=== PATIENT | female | born 1990 | race American Indian/Alaskan Native ===

== ENCOUNTER 2017-02-25 20:18 | Emergency (ER) | payer MEDICAID ==
[~2017-02-25] VITALS: Ht 162.6 cm; Wt 96.3 kg
[~2017-02-25 20:18] MED LIST: ALPR0.25 PO; CIPR500T3 PO; HYDR2TAB13 PO; IBUP200T5; LAMO25TA5 PO; OXYC-302; ZOLP-413 PO
[2017-02-25 20:23] VITALS: BP 146/79
[2017-02-25 21:14] LABS: HEMOGLOBIN 12.6 g/dL (11.7-16.4)
[2017-02-25 21:24] LABS: BLOOD UREA NITROGEN 9 mg/dL (7-18)
[2017-02-25 21:25] LABS: ASPARTATE AMINO TRANSFERASE 27 U/L (15-37)
== END 2017-02-26 00:25 | disposition home or self-care (01) ==
LOC: ED 23:46
DX: R10.13 Epigastric pain (principal); F32.9 Major depressive disorder, single episode, unspecified; F43.10 Post-traumatic stress disorder, unspecified; Z98.51 Tubal ligation status; Z90.49 Acquired absence of other specified parts of digestive tract; Z87.440 Personal history of urinary (tract) infections
CPT/HCPCS: 36415; 74020; 74176; 80053; 81001; 83690; 84703; 85025; 87086

== ENCOUNTER 2017-03-26 22:09 | Emergency (ER) | payer SELFPAY ==
[~2017-03-26] VITALS: Ht 162.6 cm; Wt 97.0 kg
[~2017-03-26 22:09] MED LIST changes: +DULO30CA2 PO; +OXYC-302 PO
[2017-03-26] MEDS ORDERED: HYDROcodone/APAP 5/325 TABLET ONE (23:18)
[2017-03-26] MEDS ORDERED: DIAZEPAM 5 MG TABLET ONE (23:18)
[2017-03-26] MEDS ORDERED: BACITRACIN ZINC OINT 500U/GM, 0.9 GM ONE (23:19)
[2017-03-26] MEDS ORDERED: ONDANSETRON ODT 4 MG ONE (23:19)
[2017-03-26] MEDS ORDERED: ONDANSETRON 4 MG TABLET PO ONE (23:30)
[2017-03-26] MEDS ORDERED: DIAZEPAM 5 MG TABLET PO ONE (23:30)
[2017-03-26 23:39] VITALS: BP 115/71
== END 2017-03-26 23:42 | disposition home or self-care (01) ==
LOC: ED 23:20
DX: S16.1XXA Strain of muscle, fascia and tendon at neck level, initial encounter (principal); S33.5XXA Sprain of ligaments of lumbar spine, initial encounter; G43.909 Migraine, unspecified, not intractable, without status migrainosus; Z90.49 Acquired absence of other specified parts of digestive tract; Z87.891 Personal history of nicotine dependence; V49.59XA Passenger injured in collision with other motor vehicles in traffic accident, initial encounter; Y93.89 Activity, other specified; Y92.89 Other specified places as the place of occurrence of the external cause; Y99.8 Other external cause status
CPT/HCPCS: 99284; Q0162

== ENCOUNTER 2017-05-14 19:48 | Emergency (ER) | payer MEDICAID ==
[~2017-05-14] VITALS: Ht 162.6 cm; Wt 98.5 kg
[2017-05-14] MEDS ORDERED: PHENAZOPYRIDINE 200 MG TABLET PO ONE (20:30)
[2017-05-14] MEDS ORDERED: SODIUM CHLORIDE FLUSH 10ML SYR IVF ONE (20:30)
[2017-05-14] MEDS ORDERED: SODIUM CHLORIDE 0.9% 1,000ML IVBOLUS ONE (20:30)
[2017-05-14 21:01] LABS: PATH.CAST-FLAG NOT PRESENT; SPERM-FLAG NOT PRESENT; SRC-FLAG NOT PRESENT; XTAL-FLAG NOT PRESENT; YLC-FLAG NOT PRESENT
[2017-05-14] MEDS ORDERED: PHENAZOPYRIDINE 200 MG TABLET ONE (21:04)
[2017-05-14 21:21] LABS: ASPARTATE AMINO TRANSFERASE 18 U/L (15-37); BLOOD UREA NITROGEN 13 mg/dL (7-18)
[2017-05-14] MEDS ORDERED: AZITHROMYCIN 500 MG TABLET PO ONE (21:30)
[2017-05-14] MEDS ORDERED: CEFTRIAXONE 250 MG IM ONE (21:30)
[2017-05-14] MEDS ORDERED: ACETAMINOPHEN 325 MG TABLET ONE (21:34)
[2017-05-14] MEDS ORDERED: AZITHROMYCIN 500 MG TABLET ONE (21:34)
[2017-05-14] MEDS ORDERED: CEFTRIAXONE 250 MG ONE (21:35)
[2017-05-14] MEDS ORDERED: ACETAMINOPHEN 325 MG TABLET PO ONE (22:00)
[2017-05-14 22:04] VITALS: BP 114/71
== END 2017-05-14 22:53 | disposition home or self-care (01) ==
LOC: ED 21:03
DX: G89.29 Other chronic pain (principal); M54.5 Low back pain; R30.0 Dysuria
CPT/HCPCS: 36415; 80053; 81001; 84703; 85025; 87086; 87491; 87591; 96360; 96372; 99284; J0696; J7030

== ENCOUNTER 2017-06-20 21:10 | Emergency (ER) | payer MEDICAID ==
[~2017-06-20] VITALS: Ht 162.6 cm; Wt 98.0 kg
[~2017-06-20 21:10] MED LIST changes: -HYDR2TAB13 PO; +HYDR2TAB29 PO
[2017-06-20] MEDS ORDERED: METOCLOPRAMIDE 5 MG/ML, 2ML IVPush ONE (22:00)
[2017-06-20] MEDS ORDERED: SODIUM CHLORIDE 0.9% 1,000ML IVBOLUS ONE (22:00)
[2017-06-20] MEDS ORDERED: ONDANSETRON 2MG/ML, 2ML IVPush ONE (22:00)
[2017-06-20] MEDS ORDERED: DIPHENHYDRAMINE 50 MG/ML, 1ML IVPush ONE (22:00)
[2017-06-20] MEDS ORDERED: DIAZEPAM 5 MG/ML, 2ML IVPush ONE (22:00)
[2017-06-20] MEDS ORDERED: SODIUM CHLORIDE FLUSH 10ML SYR IVF ONE (22:00)
[2017-06-20] MEDS ORDERED: DIPHENHYDRAMINE 50 MG/ML, 1ML ONE (22:04)
[2017-06-20] MEDS ORDERED: DIAZEPAM 5 MG/ML, 2ML ONE (22:11)
[2017-06-20] MEDS ORDERED: METOCLOPRAMIDE 5 MG/ML, 2ML ONE (22:14)
[2017-06-20 23:28] VITALS: BP 100/67
== END 2017-06-21 00:08 | disposition home or self-care (01) ==
LOC: ED 22:07
DX: S39.012A Strain of muscle, fascia and tendon of lower back, initial encounter (principal); G43.009 Migraine without aura, not intractable, without status migrainosus; G89.29 Other chronic pain; M54.9 Dorsalgia, unspecified; I88.9 Nonspecific lymphadenitis, unspecified; M79.7 Fibromyalgia; F43.10 Post-traumatic stress disorder, unspecified; X50.1XXA Overexertion from prolonged static or awkward postures, initial encounter; Y93.89 Activity, other specified; Y99.8 Other external cause status; Y92.89 Other specified places as the place of occurrence of the external cause
CPT/HCPCS: 96361; 96374; 96375; 99284; J1200; J2765; J3360; J7030

== ENCOUNTER 2017-06-28 19:27 | Emergency (ER) | payer MEDICAID ==
[~2017-06-28] VITALS: Ht 162.6 cm; Wt 95.2 kg
[2017-06-28] MEDS ORDERED: DIAZEPAM 5 MG TABLET PO ONE (20:30)
[2017-06-28] MEDS ORDERED: IBUPROFEN 200 MG TABLET PO ONE (20:30)
[2017-06-28] MEDS ORDERED: DIAZEPAM 5 MG TABLET ONE (20:34)
[2017-06-28] MEDS ORDERED: IBUPROFEN 200 MG TABLET ONE ×2 (20:34→20:35)
[2017-06-28 21:15] VITALS: BP 101/64
== END 2017-06-28 21:59 | disposition home or self-care (01) ==
LOC: ED 21:53
DX: S39.012A Strain of muscle, fascia and tendon of lower back, initial encounter (principal); Z90.49 Acquired absence of other specified parts of digestive tract; F17.200 Nicotine dependence, unspecified, uncomplicated; Z88.5 Allergy status to narcotic agent; Z88.6 Allergy status to analgesic agent; Z88.1 Allergy status to other antibiotic agents; Z88.8 Allergy status to other drugs, medicaments and biological substances; X50.0XXA Overexertion from strenuous movement or load, initial encounter; Y93.89 Activity, other specified; Y92.89 Other specified places as the place of occurrence of the external cause; Y99.8 Other external cause status
CPT/HCPCS: 99284

== ENCOUNTER 2017-07-19 09:42 | Emergency (ER) | payer MEDICAID ==
[~2017-07-19] VITALS: Ht 162.6 cm; Wt 94.9 kg
[2017-07-19] MEDS ORDERED: HYDROmorphone 1 MG/ML, 1ML ONE (10:24)
[2017-07-19] MEDS ORDERED: ONDANSETRON 2MG/ML, 2ML ONE (10:24)
[2017-07-19] MEDS ORDERED: ONDANSETRON 2MG/ML, 2ML IVPush ONE (10:30)
[2017-07-19] MEDS ORDERED: HYDROmorphone 1 MG/ML, 1ML IVPush PRN (10:30)
[2017-07-19] MEDS ORDERED: SODIUM CHLORIDE FLUSH 10ML SYR IVF ONE (10:30)
[2017-07-19 10:35] LABS: HEMATOCRIT 33.5 % (34.6-47.8); HEMOGLOBIN 10.8 g/dL (11.7-16.4); WHITE BLOOD COUNT 8.4 x10^3/uL (3.4-10)
[2017-07-19 10:41] LABS: ASPARTATE AMINO TRANSFERASE 9 U/L (15-37); BLOOD UREA NITROGEN 9 mg/dL (7-18)
[2017-07-19] MEDS ORDERED: SODIUM CHLORIDE 0.9% 1,000ML IVBOLUS ONE (12:30)
[2017-07-19 13:30] VITALS: BP 97/51
== END 2017-07-19 13:32 | disposition home or self-care (01) ==
LOC: ED 10:15
DX: D25.0 Submucous leiomyoma of uterus (principal); N83.02 Follicular cyst of left ovary; F17.210 Nicotine dependence, cigarettes, uncomplicated; G43.909 Migraine, unspecified, not intractable, without status migrainosus
CPT/HCPCS: 36415; 76830; 80053; 81003; 84703; 85025; 96361; 96374; 96375; 99285; J1170; J2405; J7030

== ENCOUNTER 2017-07-20 23:50 | Emergency (ER) | payer MEDICAID ==
[~2017-07-20] VITALS: Ht 167.6 cm; Wt 97.5 kg
[~2017-07-20 23:50] MED LIST changes: +IBUP-1484; -IBUP200T5
[2017-07-21] MEDS ORDERED: SODIUM CHLORIDE FLUSH 10ML SYR IVF ONE (01:00)
[2017-07-21] MEDS ORDERED: ONDANSETRON 2MG/ML, 2ML IVPush ONE (01:00)
[2017-07-21] MEDS ORDERED: HYDROmorphone 1 MG/ML, 1ML IVPush PRN (01:00)
[2017-07-21] MEDS ORDERED: HYDROmorphone 1 MG/ML, 1ML ONE (01:29)
[2017-07-21] MEDS ORDERED: ONDANSETRON 2MG/ML, 2ML ONE (01:29)
[2017-07-21 01:31] VITALS: BP 101/59
[2017-07-21 01:49] LABS: HEMATOCRIT 31.7 % (34.6-47.8); HEMOGLOBIN 10.2 g/dL (11.7-16.4); WHITE BLOOD COUNT 6.6 x10^3/uL (3.4-10)
[2017-07-21 01:50] LABS: BLOOD UREA NITROGEN 7 mg/dL (7-18)
[2017-07-21 01:54] LABS: ASPARTATE AMINO TRANSFERASE 17 U/L (15-37)
== END 2017-07-21 02:26 | disposition home or self-care (01) ==
LOC: ED 23:59
DX: D25.9 Leiomyoma of uterus, unspecified (principal); R11.2 Nausea with vomiting, unspecified; Z90.49 Acquired absence of other specified parts of digestive tract
CPT/HCPCS: 36415; 80053; 81003; 85025; 96374; 96375; 99284; J1170; J2405

== ENCOUNTER 2017-10-19 06:23 | Emergency (ER) | payer MEDICAID ==
[~2017-10-19] VITALS: Ht 162.6 cm; Wt 101.3 kg
[2017-10-19 06:25] VITALS: BP 141/86
[2017-10-19 07:11] LABS: HEMATOCRIT 36.4 % (34.6-47.8); WHITE BLOOD COUNT 5.4 x10^3/uL (3.4-10)
[2017-10-19 07:24] LABS: ASPARTATE AMINO TRANSFERASE 16 U/L (15-37); BLOOD UREA NITROGEN 9 mg/dL (7-18)
[2017-10-19 07:37] LABS: IS PT STATUS REG ER OR PRE ER? YES
[2017-10-19] MEDS ORDERED: OMNIPAQUE 350 MG/ML, 150 ML BOTTLE ONE (08:36)
== END 2017-10-19 09:10 | disposition home or self-care (01) ==
LOC: ED 09:04
DX: J20.9 Acute bronchitis, unspecified (principal); G43.909 Migraine, unspecified, not intractable, without status migrainosus; F43.10 Post-traumatic stress disorder, unspecified; Z90.49 Acquired absence of other specified parts of digestive tract
CPT/HCPCS: 36415; 71020; 71275; 80053; 84484; 85025; 85379; 93005; 99285; Q9967

== ENCOUNTER 2017-10-20 14:45 | Emergency (ER) | payer MEDICAID ==
[2017-10-20] MEDS ORDERED: SODIUM CHLORIDE 0.9% 1,000 ML IV ONE (15:18)
[2017-10-20] MEDS ORDERED: LORazepam 2 MG/ML, 1ML IVP ONE (15:30)
[2017-10-20] MEDS ORDERED: SODIUM CHLORIDE FLUSH 10ML SYR IVF ONE (15:30)
[2017-10-20] MEDS ORDERED: SODIUM CHLORIDE 0.9% 1,000ML IVBOLUS ONE (15:30)
[2017-10-20] MEDS ORDERED: ONDANSETRON 2MG/ML, 2ML IVPush ONE (15:30)
[2017-10-20 15:51] LABS: RAPID INFLUENZA A Negative (Negative); RAPID INFLUENZA B Negative (Negative)
[2017-10-20] MEDS ORDERED: PLEASE ENTER PATIENTS WEIGHT MC SCH (16:00)
[2017-10-20 16:03] LABS: HEMOGLOBIN 12.3 g/dL (11.7-16.4); WHITE BLOOD COUNT 7.4 x10^3/uL (3.4-10)
[2017-10-20 16:08] LABS: BLOOD UREA NITROGEN 14 mg/dL (7-18)
[2017-10-20] MEDS ORDERED: HYDROmorphone 1 MG/ML, 1ML IVPush PRN (16:30)
[2017-10-20] MEDS ORDERED: HYDROmorphone 1 MG/ML, 1ML ONE (16:48)
[2017-10-20] MEDS ORDERED: ONDANSETRON 2MG/ML, 2ML ONE (16:49)
[2017-10-20 18:20] VITALS: BP 124/62
[2017-10-20] MEDS ORDERED: ONDANSETRON ODT 8 MG ONE (18:38)
== END 2017-10-20 18:33 | disposition home or self-care (01) ==
LOC: ED 16:11
DX: B96.89 Other specified bacterial agents as the cause of diseases classified elsewhere (principal); J20.8 Acute bronchitis due to other specified organisms; F43.10 Post-traumatic stress disorder, unspecified
CPT/HCPCS: 36415; 71020; 80048; 82040; 85025; 87400; 93005; 96361; 96374; 96375; 99285; J1170; J2405; J7030

== ENCOUNTER 2017-11-25 22:24 | Emergency (ER) | payer MEDICAID ==
[~2017-11-25] VITALS: Ht 165.1 cm; Wt 102.9 kg
[2017-11-25 22:32] VITALS: BP 110/76
[2017-11-26] MEDS ORDERED: HYDROcodone/APAP 5/325 TABLET ONE (00:06)
[2017-11-26] MEDS ORDERED: HYDROcodone/APAP 5/325 TABLET PO ONE (00:30)
== END 2017-11-26 00:03 | disposition home or self-care (01) ==
LOC: ED 23:05
DX: K08.89 Other specified disorders of teeth and supporting structures (principal); G43.909 Migraine, unspecified, not intractable, without status migrainosus; M79.7 Fibromyalgia; Z90.49 Acquired absence of other specified parts of digestive tract; Z90.89 Acquired absence of other organs
CPT/HCPCS: 99282

== ENCOUNTER 2017-12-01 23:17 | Emergency (ER) | payer MEDICAID ==
[~2017-12-01] VITALS: Ht 162.6 cm; Wt 100.0 kg
[2017-12-01 23:20] VITALS: BP 120/83
== END 2017-12-02 00:35 | disposition left against medical advice (07) ==
LOC: ED 23:59
DX: M54.5 Low back pain (principal); Z53.21 Procedure and treatment not carried out due to patient leaving prior to being seen by health care provider

== ENCOUNTER 2018-02-18 21:07 | Emergency (ER) | payer MEDICAID ==
[~2018-02-18] VITALS: Ht 162.6 cm; Wt 102.0 kg
[2018-02-18] MEDS ORDERED: ONDANSETRON 2MG/ML, 2ML ONE (21:53)
[2018-02-18] MEDS ORDERED: DICYCLOMINE 20 MG TABLET ONE (21:53)
[2018-02-18] MEDS ORDERED: DICYCLOMINE 20 MG TABLET PO ONE (22:00)
[2018-02-18] MEDS ORDERED: SODIUM CHLORIDE FLUSH 10ML SYR IVF ONE (22:00)
[2018-02-18] MEDS ORDERED: ONDANSETRON 2MG/ML, 2ML IVPush ONE (22:00)
[2018-02-18] MEDS ORDERED: SODIUM CHLORIDE 0.9% 1,000ML IVBOLUS ONE (22:00)
[2018-02-18 22:40] LABS: BASOPHILS # (AUTO) 0.03 x10^3/uL (0-0.1); BASOPHILS % (AUTO) 0 % (0-1); EOSINOPHILS # (AUTO) 0.01 x10^3/uL (0-0.4); EOSINOPHILS % (AUTO) 0 % (1-7); LYMPHOCYTES # (AUTO) 2.91 x10^3/uL (1-3.4); LYMPHOCYTES % (AUTO) 30 % (22-44); MD NO; MEAN CORPUSCULAR HGB CONC 33.7 g/dL (32.4-35.8); MONOCYTES # (AUTO) 0.52 x10^3/uL (0.2-0.8); MONOCYTES % (AUTO) 5 % (2-9); NEUTROPHILS # (AUTO) 6.11 x10^3/uL (1.8-6.8); NEUTROPHILS % (AUTO) 64 % (42-75); PLATELET COUNT 282 x10^3/uL (130-400); RED BLOOD COUNT 4.17 x10^6/uL (3.82-5.3); RED CELL DISTRIBUTION WIDTH 15.4 % (9.6-15.2)
[2018-02-18 22:50] LABS: ALANINE AMINOTRANSFERASE 13 U/L (12-78); ALBUMIN 3.3 g/dL (3.4-5.0); ANION GAP 9 mmol/L (5-15); CALCIUM 8.8 mg/dL (8.5-10.1); CHLORIDE 110 mmol/L (98-107); CREATININE 0.63 mg/dL (0.55-1.02)
[2018-02-18 22:51] LABS: HCG UR SG 1.019 (1.003-1.030); MICROSCOPIC NOT IND
[2018-02-18 22:52] LABS: ALKALINE PHOSPHATASE 65 U/L (45-117); BILIRUBIN,TOTAL 0.3 mg/dL (0.2-1.0); TOTAL PROTEIN 7.2 g/dL (6.4-8.2)
[2018-02-18 22:55] LABS: CULTURE INDICATED? NO
[2018-02-18 23:28] VITALS: BP 124/62
== END 2018-02-18 23:31 | disposition home or self-care (01) ==
LOC: ED 21:53
DX: R10.84 Generalized abdominal pain (principal); R11.2 Nausea with vomiting, unspecified; M79.7 Fibromyalgia; Z90.49 Acquired absence of other specified parts of digestive tract
CPT/HCPCS: 36415; 80053; 81003; 81025; 83690; 85025; 96361; 96374; 99284; J2405; J7030

== ENCOUNTER 2018-06-13 18:49 | Emergency (ER) | payer MEDICAID ==
[~2018-06-13] VITALS: Ht 162.6 cm; Wt 103.4 kg
[2018-06-13] MEDS ORDERED: DICYCLOMINE 20 MG TABLET PO ONE (20:00)
[2018-06-13] MEDS ORDERED: SODIUM CHLORIDE FLUSH 10ML SYR IVF ONE (20:00)
[2018-06-13] MEDS ORDERED: FAMOTIDINE 20 MG/2 ML IVP ONE (20:00)
[2018-06-13] MEDS ORDERED: SODIUM CHLORIDE 0.9% 1,000ML IVBOLUS ONE (20:00)
[2018-06-13] MEDS ORDERED: ONDANSETRON 2MG/ML, 2ML IVPush ONE (20:00)
[2018-06-13 20:08] LABS: BASOPHILS # (AUTO) 0.07 x10^3/uL (0-0.1); BASOPHILS % (AUTO) 1 % (0-1); EOSINOPHILS # (AUTO) 0.07 x10^3/uL (0-0.4); EOSINOPHILS % (AUTO) 1 % (1-7); LYMPHOCYTES # (AUTO) 2.94 x10^3/uL (1-3.4); LYMPHOCYTES % (AUTO) 31 % (22-44); MD NO; MEAN CORPUSCULAR HEMOGLOBIN 29.3 pg (27.0-34.8); MEAN CORPUSCULAR HGB CONC 33.4 g/dL (32.4-35.8); MEAN CORPUSCULAR VOLUME 87.6 fL (80-100); MONOCYTES # (AUTO) 0.59 x10^3/uL (0.2-0.8); MONOCYTES % (AUTO) 6 % (2-9); NEUTROPHILS % (AUTO) 62 % (42-75); PLATELET COUNT 318 x10^3/uL (130-400); RED BLOOD COUNT 4.53 x10^6/uL (3.82-5.3); RED CELL DISTRIBUTION WIDTH 14.9 % (9.6-15.2)
[2018-06-13] MEDS ORDERED: DICYCLOMINE 20 MG TABLET ONE (20:08)
[2018-06-13] MEDS ORDERED: FAMOTIDINE 20 MG/2 ML ONE (20:08)
[2018-06-13] MEDS ORDERED: ONDANSETRON 2MG/ML, 2ML ONE (20:08)
[2018-06-13 20:13] LABS: MICROSCOPIC NOT IND
[2018-06-13 20:15] LABS: CULTURE INDICATED? NO
[2018-06-13 20:16] LABS: ALANINE AMINOTRANSFERASE 36 U/L (12-78); ALBUMIN 3.7 g/dL (3.4-5.0); ANION GAP 9 mmol/L (5-15); CALCIUM 9.3 mg/dL (8.5-10.1); CHLORIDE 111 mmol/L (98-107); CREATININE 0.71 mg/dL (0.55-1.02)
[2018-06-13 20:20] LABS: ALKALINE PHOSPHATASE 73 U/L (45-117); BILIRUBIN,TOTAL 0.2 mg/dL (0.2-1.0); TOTAL PROTEIN 7.7 g/dL (6.4-8.2)
[2018-06-13 21:48] VITALS: BP 100/52
== END 2018-06-13 21:50 | disposition home or self-care (01) ==
LOC: ED 21:44
DX: R10.84 Generalized abdominal pain (principal); R11.0 Nausea; J45.909 Unspecified asthma, uncomplicated
CPT/HCPCS: 36415; 74021; 80053; 81003; 83690; 84703; 85025; 96361; 96374; 96375; 99285; J2405; J7030; S0028

== ENCOUNTER 2018-08-15 12:16 | Emergency (ER) | payer MEDICAID ==
[~2018-08-15] VITALS: Ht 162.6 cm; Wt 101.8 kg
[2018-08-15 12:23] VITALS: BP 121/85
[2018-08-15] MEDS ORDERED: HYDROcodone/APAP 5/325 TABLET ONE (12:52)
[2018-08-15] MEDS ORDERED: HYDROcodone/APAP 5/325 TABLET PO PRN (13:00)
== END 2018-08-15 14:03 | disposition home or self-care (01) ==
LOC: ED 13:31
DX: S46.912A Strain of unspecified muscle, fascia and tendon at shoulder and upper arm level, left arm, initial encounter (principal); S63.642A Sprain of metacarpophalangeal joint of left thumb, initial encounter; F41.1 Generalized anxiety disorder; G89.29 Other chronic pain; Z90.89 Acquired absence of other organs; Z90.49 Acquired absence of other specified parts of digestive tract; Z88.0 Allergy status to penicillin; Z88.6 Allergy status to analgesic agent; Z88.8 Allergy status to other drugs, medicaments and biological substances; V49.49XA Driver injured in collision with other motor vehicles in traffic accident, initial encounter; Y93.89 Activity, other specified; Y92.89 Other specified places as the place of occurrence of the external cause; Y99.8 Other external cause status
CPT/HCPCS: 29125; 99284

== ENCOUNTER 2018-08-18 19:04 | Emergency (ER) | payer MEDICAID ==
[~2018-08-18] VITALS: Ht 162.6 cm; Wt 102.0 kg
[2018-08-18 19:35] VITALS: BP 136/87
[2018-08-18] MEDS ORDERED: OXYcodone/APAP 5/325MG TABLET ONE (20:22)
[2018-08-18] MEDS ORDERED: OXYcodone/APAP 5/325MG TABLET PO ONE (20:30)
== END 2018-08-18 20:28 | disposition home or self-care (01) ==
LOC: ED 20:22
DX: S39.012A Strain of muscle, fascia and tendon of lower back, initial encounter (principal); M54.16 Radiculopathy, lumbar region; G43.909 Migraine, unspecified, not intractable, without status migrainosus; Z88.0 Allergy status to penicillin; Z88.1 Allergy status to other antibiotic agents; V49.49XA Driver injured in collision with other motor vehicles in traffic accident, initial encounter; Y93.89 Activity, other specified; Y92.89 Other specified places as the place of occurrence of the external cause; Y99.8 Other external cause status
CPT/HCPCS: 72110; 99284

== ENCOUNTER 2018-08-24 18:54 | Emergency (ER) | payer MEDICAID ==
[~2018-08-24] VITALS: Ht 162.6 cm; Wt 103.1 kg
[2018-08-24] MEDS ORDERED: OXYcodone/APAP 5/325MG TABLET PO ONE (20:00)
[2018-08-24] MEDS ORDERED: OXYcodone/APAP 5/325MG TABLET ONE (20:04)
[2018-08-24 21:01] VITALS: BP 146/68
== END 2018-08-24 21:06 | disposition home or self-care (01) ==
LOC: ED 21:00
DX: S76.012A Strain of muscle, fascia and tendon of left hip, initial encounter (principal); J45.909 Unspecified asthma, uncomplicated; G43.909 Migraine, unspecified, not intractable, without status migrainosus; V49.9XXA Car occupant (driver) (passenger) injured in unspecified traffic accident, initial encounter; Y93.89 Activity, other specified; Y92.89 Other specified places as the place of occurrence of the external cause; Y99.8 Other external cause status
CPT/HCPCS: 99284

== ENCOUNTER 2018-09-24 01:25 | Emergency (ER) | payer MEDICAID ==
[~2018-09-24] VITALS: Ht 162.6 cm; Wt 103.0 kg
[2018-09-24] MEDS ORDERED: VICODIN (01:32)
[2018-09-24] MEDS ORDERED: DIAZEPAM 5 MG TABLET PO ONE (02:00)
[2018-09-24] MEDS ORDERED: DIAZEPAM 5 MG TABLET ONE (02:12)
[2018-09-24 02:30] VITALS: BP 121/74
== END 2018-09-24 02:32 | disposition home or self-care (01) ==
LOC: ED 02:28
DX: S16.1XXA Strain of muscle, fascia and tendon at neck level, initial encounter (principal); Z88.0 Allergy status to penicillin; Z88.5 Allergy status to narcotic agent; Z88.1 Allergy status to other antibiotic agents; F17.200 Nicotine dependence, unspecified, uncomplicated; X58.XXXA Exposure to other specified factors, initial encounter; Y93.89 Activity, other specified; Y92.89 Other specified places as the place of occurrence of the external cause; Y99.8 Other external cause status; G43.909 Migraine, unspecified, not intractable, without status migrainosus
CPT/HCPCS: 99283

== ENCOUNTER 2018-12-10 21:02 | Emergency (ER) | payer MEDICAID ==
[~2018-12-10] VITALS: Ht 162.6 cm; Wt 99.1 kg
[~2018-12-10 21:02] MED LIST changes: +VICODIN
[2018-12-10 21:04] VITALS: BP 111/78
--- NOTE | 2018-12-10 21:32 | NUR ---
PT ARRIVES TO ED WITH BEING WORRIED THE CAST IS ON TOO TIGHT AT THIS TIME. PT HAS GOOD CAP REFILL AND CMS INTACT. NO SWELLING NOTED.
--- NOTE | 2018-12-10 21:37 | NUR ---
Patient/Caregiver given discharge instructions and they have confirmed that they understand the instructions. Patient ambulatory with steady gait.
== END 2018-12-10 21:41 | disposition home or self-care (01) ==
LOC: ED 21:30
DX: M25.532 Pain in left wrist (principal); M62.838 Other muscle spasm; G89.29 Other chronic pain; J45.909 Unspecified asthma, uncomplicated; G43.909 Migraine, unspecified, not intractable, without status migrainosus
CPT/HCPCS: 99283

== ENCOUNTER 2019-01-07 23:07 | Emergency (ER) | payer MEDICAID ==
[~2019-01-07] VITALS: Ht 162.6 cm; Wt 100.0 kg
[2019-01-07] MEDS ORDERED: OXYC-307 PO (23:24)
[2019-01-07] MEDS ORDERED: ALBU0.63 NEB (23:25)
--- NOTE | 2019-01-07 23:27 | NUR ---
FIRST CONTACT WITH PT. PT C/O COUGH/NASAL CONGESTION X 3 DAYS. PT STATES " I FEEL SUPER SICK X 3 DAYS." PT DENIES N/V/D/CP/FEVER AT THIS TIME. PT'S AOX4. RESPS EVEN AND UNLABORED. BP/SPO2 MONITORS IN PLACE. CALL LIGHT WITHIN REACH. EDMD AT BEDSIDE TO ASSESS AND EXPLAIN POC AT THIS TIME.
--- NOTE | 2019-01-08 00:15 | NUR ---
Patient is resting comfortably in bed. Vital Signs within normal limits. PT'S AOX4. RESPS EVEN AND UNLABORED.
[2019-01-08 00:44] VITALS: BP 123/78
--- NOTE | 2019-01-08 00:53 | NUR ---
PT GIVEN DC INSTRUCTIONS AND SCRIPT. PT EDUCATED REGARDING DC MEDICATION WHICH IS HERIBERTO MARTÍNEZ. PT AMB TO DC WITH STEADY GAIT. PT'S AOX4. RESPS EVEN AND UNLABORED. NO ACUTE DISTRESS AT DC.
== END 2019-01-08 00:46 | disposition home or self-care (01) ==
LOC: ED 23:59
DX: R05 Cough (principal); J45.909 Unspecified asthma, uncomplicated; F32.9 Major depressive disorder, single episode, unspecified; G89.29 Other chronic pain; F43.10 Post-traumatic stress disorder, unspecified; F17.200 Nicotine dependence, unspecified, uncomplicated; Z88.0 Allergy status to penicillin; Z88.6 Allergy status to analgesic agent; Z88.8 Allergy status to other drugs, medicaments and biological substances
CPT/HCPCS: 71046; 99283

== ENCOUNTER 2019-02-16 19:43 | Inpatient (IN) | payer MEDICAID ==
[~2019-02-16] VITALS: Ht 162.6 cm; Wt 99.6 kg
[~2019-02-16 19:43] MED LIST changes: +ALBU0.63 NEB; +OXYC-307 PO
[2019-02-16] MEDS ORDERED: SODIUM CHLORIDE FLUSH 10ML SYR IVF ONE (20:00)
[2019-02-16 20:25] LABS: BASOPHILS # (AUTO) 0.03 x10^3/uL (0-0.1); BASOPHILS % (AUTO) 0 % (0-1); EOSINOPHILS # (AUTO) 0.03 x10^3/uL (0-0.4); EOSINOPHILS % (AUTO) 0 % (1-7); LYMPHOCYTES # (AUTO) 2.94 x10^3/uL (1-3.4); LYMPHOCYTES % (AUTO) 33 % (22-44); MD NO; MEAN CORPUSCULAR HEMOGLOBIN 30.4 pg (27.0-34.8); MEAN CORPUSCULAR VOLUME 89.6 fL (80-100); MEAN PLATELET VOLUME 8.5 fL (7.4-10.4); MONOCYTES # (AUTO) 0.56 x10^3/uL (0.2-0.8); MONOCYTES % (AUTO) 6 % (2-9); NEUTROPHILS # (AUTO) 5.27 x10^3/uL (1.8-6.8); NEUTROPHILS % (AUTO) 60 % (42-75); PLATELET COUNT 250 x10^3/uL (130-400); RED BLOOD COUNT 4.51 x10^6/uL (3.82-5.3)
--- NOTE | 2019-02-16 20:30 | NUR ---
LOWER LEGT ABD PAIN X 4 DAYS. STATED TOOK ABOUT 24, 500MG TYLENOL PILLS IN 24 HOURS. DENIED SI/SA. DENIED URINARY SYMPTOMS. LAST TYLENOL ONE HOUR AGO. VSS, APPEARS WELL BUT REPORTS RUQ PAIN, NAUSEA & FATIGUE. PLACED ON DIE FINISHER FORGING, TO PLACE PIV SHORTLY
[2019-02-16 20:36] LABS: ALANINE AMINOTRANSFERASE 15 U/L (12-78); ALBUMIN 3.9 g/dL (3.4-5.0); ANION GAP 6 mmol/L (5-15); CALCIUM 9.2 mg/dL (8.5-10.1); CHLORIDE 113 mmol/L (98-107); CREATININE 0.76 mg/dL (0.55-1.02); SALICYLATE LEVEL 2.7 mg/dL (2.8-20.0)
[2019-02-16 20:41] LABS: ACETAMINOPHEN 75 mcg/mL (10-30); ALKALINE PHOSPHATASE 56 U/L (45-117); BILIRUBIN,TOTAL 0.3 mg/dL (0.2-1.0); TOTAL PROTEIN 7.4 g/dL (6.4-8.2)
[2019-02-16] MEDS ORDERED: DEXTROSE 5% IV ONE ×3 (21:00→22:00)
[2019-02-16] MEDS ORDERED: ACETYLCYSTEINE IV ONE ×3 (21:00→22:00)
[2019-02-16 22:53] LABS: MICROSCOPIC NOT IND
[2019-02-16] MEDS ORDERED: OXYC-302 PO (22:55)
[2019-02-16 22:58] LABS: AMPHETAMINE SCREEN, URINE Negative (Negative); BARBITURATE SCREEN, URINE Negative (Negative); BENZODIAZEPINE SCREEN, URINE Negative (Negative); CANNABINOID SCREEN, URINE Negative (Negative); COCAINE SCREEN, URINE Negative (Negative); CULTURE INDICATED? NO; METHADONE SCREEN, URINE Negative (Negative); OPIATE SCREEN, URINE Negative (Negative)
[2019-02-17] MEDS ORDERED: HYDROmorphone 2 MG/ML, 1ML IVPush PRN
[2019-02-17] MEDS: ONDANSETRON 2MG/ML, 2ML IVPush PRN ×2 (00:34→08:05)
[2019-02-17 00:43] LABS: INTERNATIONAL NORMALIZED RATIO 1.02 (0.93-1.1); PROTHROMBIN TIME 10.7 Seconds (9.6-11.5)
[2019-02-17] MEDS ORDERED: DEXTROSE 5% IV ONE (01:00)
[2019-02-17] MEDS ORDERED: ACETYLCYSTEINE IV ONE (01:00)
[2019-02-17 02:00] VITALS: BP 99/64
[2019-02-17 07:11] LABS: BASOPHILS # (AUTO) 0.02 x10^3/uL (0-0.1); BASOPHILS % (AUTO) 0 % (0-1); EOSINOPHILS # (AUTO) 0.02 x10^3/uL (0-0.4); EOSINOPHILS % (AUTO) 0 % (1-7); LYMPHOCYTES # (AUTO) 2.55 x10^3/uL (1-3.4); LYMPHOCYTES % (AUTO) 43 % (22-44); MD NO; MEAN CORPUSCULAR HEMOGLOBIN 29.8 pg (27.0-34.8); MEAN CORPUSCULAR HGB CONC 33.3 g/dL (32.4-35.8); MEAN CORPUSCULAR VOLUME 89.7 fL (80-100); MEAN PLATELET VOLUME 8.3 fL (7.4-10.4); MONOCYTES # (AUTO) 0.52 x10^3/uL (0.2-0.8); MONOCYTES % (AUTO) 9 % (2-9); NEUTROPHILS # (AUTO) 2.83 x10^3/uL (1.8-6.8); NEUTROPHILS % (AUTO) 48 % (42-75); PLATELET COUNT 227 x10^3/uL (130-400); RED BLOOD COUNT 4.06 x10^6/uL (3.82-5.3); RED CELL DISTRIBUTION WIDTH 14.2 % (9.6-15.2)
[2019-02-17 07:18] LABS: ANION GAP 8 mmol/L (5-15); CALCIUM 8.6 mg/dL (8.5-10.1); CHLORIDE 113 mmol/L (98-107)
[2019-02-17 07:21] LABS: ALANINE AMINOTRANSFERASE 16 U/L (12-78); ALKALINE PHOSPHATASE 30 U/L (45-117); BILIRUBIN,TOTAL 0.5 mg/dL (0.2-1.0); TOTAL PROTEIN 6.1 g/dL (6.4-8.2)
[2019-02-17 07:30] VITALS: BP 106/71
[2019-02-17] MEDS ORDERED: LIDODERM 5% PATCH TD SCH (11:00)
[2019-02-17 12:46] VITALS: BP 98/61
== END 2019-02-17 17:25 | disposition left against medical advice (07) | DRG 918 ==
LOC: ED 21:01 → EDIP 21:36 → 3NW 22:32
PROVIDERS: ADMIT Family Medicine; ATTEND Family Medicine
DX: T39.1X1A Poisoning by 4-Aminophenol derivatives, accidental (unintentional), initial encounter (principal); E66.9 Obesity, unspecified; F17.200 Nicotine dependence, unspecified, uncomplicated; G89.29 Other chronic pain; Z53.21 Procedure and treatment not carried out due to patient leaving prior to being seen by health care provider; N83.00 Follicular cyst of ovary, unspecified side; Z83.3 Family history of diabetes mellitus; Z68.37 Body mass index [BMI] 37.0-37.9, adult; Z90.49 Acquired absence of other specified parts of digestive tract; Z98.1 Arthrodesis status; Y92.89 Other specified places as the place of occurrence of the external cause; Z88.8 Allergy status to other drugs, medicaments and biological substances; Z88.6 Allergy status to analgesic agent
CPT/HCPCS: 36415; 76856; 80053; 80307; 80329; 81003; 81025; 83690; 83735; 84703; 85025; 85610; 93005; 96365; G0378; J0132; J2405; J7060; J7070; G0480

== ENCOUNTER 2019-02-18 15:25 | Emergency (ER) | payer MEDICAID ==
[~2019-02-18] VITALS: Ht 162.6 cm; Wt 99.3 kg
[2019-02-18 15:43] VITALS: BP 146/97
[2019-02-18 16:16] LABS: MD NO
[2019-02-18 16:21] LABS: BASOPHILS # (AUTO) 0.04 x10^3/uL (0-0.1); BASOPHILS % (AUTO) 0 % (0-1); EOSINOPHILS # (AUTO) 0.03 x10^3/uL (0-0.4); EOSINOPHILS % (AUTO) 0 % (1-7); LYMPHOCYTES # (AUTO) 2.56 x10^3/uL (1-3.4); LYMPHOCYTES % (AUTO) 31 % (22-44); MEAN CORPUSCULAR HEMOGLOBIN 30.6 pg (27.0-34.8); MEAN CORPUSCULAR HGB CONC 34.1 g/dL (32.4-35.8); MEAN CORPUSCULAR VOLUME 89.8 fL (80-100); MEAN PLATELET VOLUME 8.5 fL (7.4-10.4); MONOCYTES # (AUTO) 0.47 x10^3/uL (0.2-0.8); MONOCYTES % (AUTO) 6 % (2-9); NEUTROPHILS # (AUTO) 5.07 x10^3/uL (1.8-6.8); NEUTROPHILS % (AUTO) 62 % (42-75); PLATELET COUNT 243 x10^3/uL (130-400); RED BLOOD COUNT 4.41 x10^6/uL (3.82-5.3); RED CELL DISTRIBUTION WIDTH 14.1 % (9.6-15.2)
[2019-02-18 16:24] LABS: ALBUMIN 4.1 g/dL (3.4-5.0); ANION GAP 6 mmol/L (5-15); CALCIUM 9.3 mg/dL (8.5-10.1); CHLORIDE 109 mmol/L (98-107)
[2019-02-18 16:28] LABS: ALANINE AMINOTRANSFERASE 20 U/L (12-78); ALKALINE PHOSPHATASE 62 U/L (45-117); BILIRUBIN,TOTAL 0.2 mg/dL (0.2-1.0); CREATININE 0.78 mg/dL (0.55-1.02)
[2019-02-18 16:29] LABS: ACETAMINOPHEN < 2 mcg/mL (10-30)
--- NOTE | 2019-02-18 16:58 | NUR ---
Pt from lobby to 4
== END 2019-02-18 18:57 | disposition home or self-care (01) ==
LOC: ED 17:08
DX: R10.11 Right upper quadrant pain (principal); R11.2 Nausea with vomiting, unspecified; J45.909 Unspecified asthma, uncomplicated; F32.9 Major depressive disorder, single episode, unspecified; F41.1 Generalized anxiety disorder; G89.29 Other chronic pain; F17.200 Nicotine dependence, unspecified, uncomplicated; Z90.89 Acquired absence of other organs; Z90.49 Acquired absence of other specified parts of digestive tract
CPT/HCPCS: 36415; 80053; 80307; 83690; 85025; 99283

== ENCOUNTER 2019-04-16 16:43 | Emergency (ER) | payer MEDICAID ==
[~2019-04-16] VITALS: Ht 162.6 cm; Wt 96.0 kg
[2019-04-16 16:48] VITALS: BP 119/76
[2019-04-16] MEDS ORDERED: IBUPROFEN 800 MG TABLET PO ONE (17:30)
[2019-04-16] MEDS ORDERED: IBUPROFEN 200 MG TABLET ONE (17:32)
== END 2019-04-16 17:38 | disposition home or self-care (01) ==
LOC: ED 17:32
DX: S63.502A Unspecified sprain of left wrist, initial encounter (principal); X58.XXXA Exposure to other specified factors, initial encounter; Y93.89 Activity, other specified; Y92.89 Other specified places as the place of occurrence of the external cause; Y99.8 Other external cause status
CPT/HCPCS: 29260; 99283

== ENCOUNTER 2019-05-19 12:36 | Emergency (ER) | payer MEDICAID ==
[~2019-05-19] VITALS: Ht 162.6 cm; Wt 99.7 kg
[2019-05-19 13:19] LABS: BASOPHILS # (AUTO) 0.01 x10^3/uL (0-0.1); BASOPHILS % (AUTO) 0 % (0-1); EOSINOPHILS # (AUTO) 0.03 x10^3/uL (0-0.4); EOSINOPHILS % (AUTO) 1 % (1-7); LYMPHOCYTES # (AUTO) 2.76 x10^3/uL (1-3.4); LYMPHOCYTES % (AUTO) 46 % (22-44); MD NO; MEAN CORPUSCULAR HEMOGLOBIN 29.6 pg (27.0-34.8); MEAN CORPUSCULAR VOLUME 89.8 fL (80-100); MEAN PLATELET VOLUME 7.9 fL (7.4-10.4); MONOCYTES # (AUTO) 0.33 x10^3/uL (0.2-0.8); MONOCYTES % (AUTO) 6 % (2-9); NEUTROPHILS # (AUTO) 2.84 x10^3/uL (1.8-6.8); NEUTROPHILS % (AUTO) 48 % (42-75); PLATELET COUNT 205 x10^3/uL (130-400); RED BLOOD COUNT 4.05 x10^6/uL (3.82-5.3); RED CELL DISTRIBUTION WIDTH 13.6 % (9.6-15.2)
[2019-05-19 13:29] LABS: ALANINE AMINOTRANSFERASE 29 U/L (12-78); ALBUMIN 3.4 g/dL (3.4-5.0); ANION GAP 7 mmol/L (5-15); CALCIUM 8.3 mg/dL (8.5-10.1); CHLORIDE 111 mmol/L (98-107); CREATININE 0.92 mg/dL (0.55-1.02)
[2019-05-19 13:34] LABS: ALKALINE PHOSPHATASE 69 U/L (45-117); BILIRUBIN,TOTAL 0.2 mg/dL (0.2-1.0); TOTAL PROTEIN 6.8 g/dL (6.4-8.2)
[2019-05-19 13:55] LABS: CULTURE INDICATED? NO; MICROSCOPIC AUTO
--- NOTE | 2019-05-19 14:00 | NUR ---
pt resting in [facility], additional labs and ct ordered
--- NOTE | 2019-05-19 14:36 | NUR ---
pt to ct
[2019-05-19 15:05] VITALS: BP 102/70
--- NOTE | 2019-05-19 15:14 | NUR ---
labs and rad results complete. pt up for recheck. pt resting in gurney watching tv, vss. call light within reach
== END 2019-05-19 15:36 | disposition home or self-care (01) ==
LOC: ED 13:04
DX: R55 Syncope and collapse (principal); M54.5 Low back pain; G89.29 Other chronic pain; F17.200 Nicotine dependence, unspecified, uncomplicated; J45.909 Unspecified asthma, uncomplicated; Z90.49 Acquired absence of other specified parts of digestive tract
CPT/HCPCS: 36415; 74176; 80053; 81001; 83690; 84703; 85025; 93005; 99284

== ENCOUNTER 2019-05-22 02:16 | Emergency (ER) | payer MEDICAID ==
[~2019-05-22] VITALS: Ht 162.6 cm; Wt 95.9 kg
[2019-05-22] MEDS ORDERED: HYDROmorphone 1 MG/ML, 1ML INJ IM ONE ×2 (03:30→04:30)
[2019-05-22] MEDS ORDERED: ONDANSETRON ODT 8 MG PO ONE (03:30)
[2019-05-22] MEDS ORDERED: ONDANSETRON 2MG/ML, 2ML IVPush ONE (03:30)
[2019-05-22] MEDS ORDERED: HYDROmorphone 2 MG/ML, 1ML IVPush PRN (03:30)
[2019-05-22] MEDS ORDERED: ONDANSETRON ODT 8 MG ONE (03:31)
[2019-05-22] MEDS ORDERED: HYDROmorphone 1 MG/ML, 1ML VIAL ONE ×2 (03:31→04:19)
[2019-05-22 03:41] LABS: BASOPHILS # (AUTO) 0.03 x10^3/uL (0-0.1); BASOPHILS % (AUTO) 0 % (0-1); EOSINOPHILS # (AUTO) 0.02 x10^3/uL (0-0.4); EOSINOPHILS % (AUTO) 0 % (1-7); LYMPHOCYTES # (AUTO) 1.82 x10^3/uL (1-3.4); LYMPHOCYTES % (AUTO) 21 % (22-44); MD NO; MEAN CORPUSCULAR HEMOGLOBIN 30.7 pg (27.0-34.8); MEAN CORPUSCULAR HGB CONC 33.5 g/dL (32.4-35.8); MEAN CORPUSCULAR VOLUME 91.6 fL (80-100); MEAN PLATELET VOLUME 8.2 fL (7.4-10.4); MONOCYTES # (AUTO) 0.47 x10^3/uL (0.2-0.8); MONOCYTES % (AUTO) 6 % (2-9); NEUTROPHILS # (AUTO) 6.26 x10^3/uL (1.8-6.8); NEUTROPHILS % (AUTO) 73 % (42-75); PLATELET COUNT 237 x10^3/uL (130-400); RED CELL DISTRIBUTION WIDTH 13.7 % (9.6-15.2)
--- NOTE | 2019-05-22 03:52 | NUR ---
Pt medicated for pain and nausea. Pt placed on bp and spo2 monitors. vss. awaiting us.
[2019-05-22 03:53] LABS: ALANINE AMINOTRANSFERASE 38 U/L (12-78); ALBUMIN 3.6 g/dL (3.4-5.0); ANION GAP 6 mmol/L (5-15); CALCIUM 9.5 mg/dL (8.5-10.1); CHLORIDE 115 mmol/L (98-107); CREATININE 0.63 mg/dL (0.55-1.02)
[2019-05-22 03:55] LABS: ALKALINE PHOSPHATASE 44 U/L (45-117); BILIRUBIN,TOTAL 0.5 mg/dL (0.2-1.0)
--- NOTE | 2019-05-22 04:00 | NUR ---
Report received, care assumed. Pt resting quietly, states pain is "a little bit" better post dilaudid, denies nausea. Pt aware awaiting results, denies needs at this time.
--- NOTE | 2019-05-22 04:25 | NUR ---
Test results in and provider has been in to re-evaluate. Pt states pain was 6/10 post 1st dose dilaudid; 2nd dose dilaudid given with prednisone for inflammation. Pt otherwise cleared for discharge if no adverse reaction to meds noted.
--- NOTE | 2019-05-22 04:46 | NUR ---
PT STATES PAIN DOWN TO 4/10 POST 2ND DILAUDID. DENIES NAUSEA. AMBULATING WELL UPON DEPARTURE. NUMBER FOR MTM PROVIDED FOR MEDICAID RIDE HOME.
[2019-05-22 04:47] VITALS: BP 105/64
== END 2019-05-22 04:49 | disposition home or self-care (01) ==
LOC: ED 03:18
DX: K52.9 Noninfective gastroenteritis and colitis, unspecified (principal); Z88.1 Allergy status to other antibiotic agents; Z88.5 Allergy status to narcotic agent; Z88.6 Allergy status to analgesic agent; Z88.8 Allergy status to other drugs, medicaments and biological substances
CPT/HCPCS: 36415; 80053; 83690; 85025; 96372; 99284; J1170; J7512; Q0162

== ENCOUNTER 2019-05-22 22:30 | Emergency (ER) | payer MEDICAID ==
[~2019-05-22] VITALS: Ht 162.6 cm; Wt 95.6 kg
--- NOTE | 2019-05-22 23:26 | NUR ---
PT HERE FOR RUQ PAIN THAT STARTED SAYURDAY. PT HAS BEEN SEEN HERE MULTIPLE TIMES FOR SAME. VSS. PA AT BEDSIDE
--- NOTE | 2019-05-22 23:57 | NUR ---
pt to us
--- NOTE | 2019-05-23 01:06 | NUR ---
PT UP TO BATHROOM FOR UA.
[2019-05-23 01:29] LABS: CULTURE INDICATED? YES; HCG UR SG 1.041 (1.003-1.030); MICROSCOPIC INDICATED
[2019-05-23] MEDS ORDERED: HYDROmorphone 2 MG/ML, 1ML IVPush PRN (01:30)
[2019-05-23] MEDS ORDERED: ONDANSETRON 2MG/ML, 2ML IVPush ONE (01:30)
[2019-05-23] MEDS ORDERED: CEFTRIAXONE PMX 1GM/50ML 50 ML ONE (01:51)
[2019-05-23 02:00] VITALS: BP 124/79
[2019-05-23] MEDS ORDERED: CEFTRIAXONE PMX 1GM/50ML 50 ML IV ONE (02:00)
[2019-05-23 02:01] LABS: ALANINE AMINOTRANSFERASE 28 U/L (12-78); ALBUMIN 3.6 g/dL (3.4-5.0); ANION GAP 7 mmol/L (5-15); CALCIUM 9.5 mg/dL (8.5-10.1); CHLORIDE 114 mmol/L (98-107); CREATININE 0.82 mg/dL (0.55-1.02)
[2019-05-23 02:03] LABS: ALKALINE PHOSPHATASE 52 U/L (45-117); BASOPHILS # (AUTO) 0.02 x10^3/uL (0-0.1); BASOPHILS % (AUTO) 0 % (0-1); BILIRUBIN,TOTAL 0.5 mg/dL (0.2-1.0); EOSINOPHILS # (AUTO) 0.01 x10^3/uL (0-0.4); EOSINOPHILS % (AUTO) 0 % (1-7); LYMPHOCYTES # (AUTO) 2.92 x10^3/uL (1-3.4); LYMPHOCYTES % (AUTO) 28 % (22-44); MD NO; MEAN CORPUSCULAR HEMOGLOBIN 29.9 pg (27.0-34.8); MEAN CORPUSCULAR VOLUME 90.6 fL (80-100); MONOCYTES # (AUTO) 0.58 x10^3/uL (0.2-0.8); MONOCYTES % (AUTO) 6 % (2-9); NEUTROPHILS # (AUTO) 6.89 x10^3/uL (1.8-6.8); NEUTROPHILS % (AUTO) 66 % (42-75); PLATELET COUNT 234 x10^3/uL (130-400); RED BLOOD COUNT 4.09 x10^6/uL (3.82-5.3); RED CELL DISTRIBUTION WIDTH 13.7 % (9.6-15.2); TOTAL PROTEIN 6.9 g/dL (6.4-8.2)
--- NOTE | 2019-05-23 02:08 | NUR ---
PT MEDICATED FOR PAIN. ABX RUNNING. CALL LIGHT IN REACH
[2019-05-23] MEDS ORDERED: IBUPROFEN 800 MG TABLET ONE (02:44)
--- NOTE | 2019-05-23 02:54 | NUR ---
Patient given discharge instructions and they have confirmed that they understand the instructions. Patient ambulatory with steady gait.
[2019-05-23] MEDS ORDERED: IBUPROFEN 800 MG TABLET PO ONE (03:00)
== END 2019-05-23 02:56 ==
LOC: ED 23:40
DX: N10 Acute pyelonephritis (principal); Z88.1 Allergy status to other antibiotic agents; Z88.5 Allergy status to narcotic agent; Z88.8 Allergy status to other drugs, medicaments and biological substances; Z88.6 Allergy status to analgesic agent
CPT/HCPCS: 36415; 76700; 80053; 81001; 81025; 83690; 85025; 87086; 96374; 96375; 99284; J0696; J1170; J2405

== ENCOUNTER 2019-05-28 21:45 | Emergency (ER) | payer MEDICAID ==
[~2019-05-28] VITALS: Ht 160 cm; Wt 98.1 kg
[2019-05-28 21:46] VITALS: BP 138/88
[2019-05-28 22:25] LABS: MICROSCOPIC AUTO
[2019-05-28 22:26] LABS: CULTURE INDICATED? NO
--- NOTE | 2019-05-28 22:27 | NUR ---
PT REPORTS ABD PAIN AND BLOOD IN URINE UNCHANGED SINCE LAST VISIT. PT REPORTS BEING DONE WITH RX FROM LAST VISIT.
--- NOTE | 2019-05-28 22:28 | NUR ---
ua sent to lab
[2019-05-28 22:48] LABS: HCG UR SG 1.024 (1.003-1.030)
[2019-05-28] MEDS ORDERED: HYDROmorphone 2 MG/ML, 1ML IM ONE (23:00)
[2019-05-28 23:11] LABS: BASOPHILS # (AUTO) 0.01 x10^3/uL (0-0.1); BASOPHILS % (AUTO) 0 % (0-1); EOSINOPHILS # (AUTO) 0.04 x10^3/uL (0-0.4); EOSINOPHILS % (AUTO) 1 % (1-7); LYMPHOCYTES % (AUTO) 33 % (22-44); MD NO; MEAN CORPUSCULAR HEMOGLOBIN 29.8 pg (27.0-34.8); MEAN CORPUSCULAR HGB CONC 32.9 g/dL (32.4-35.8); MEAN CORPUSCULAR VOLUME 90.6 fL (80-100); MEAN PLATELET VOLUME 7.9 fL (7.4-10.4); MONOCYTES % (AUTO) 6 % (2-9); NEUTROPHILS # (AUTO) 4.93 x10^3/uL (1.8-6.8); NEUTROPHILS % (AUTO) 60 % (42-75); PLATELET COUNT 231 x10^3/uL (130-400); RED BLOOD COUNT 3.94 x10^6/uL (3.82-5.3); RED CELL DISTRIBUTION WIDTH 13.8 % (9.6-15.2)
--- NOTE | 2019-05-28 23:12 | NUR ---
Pt placed on comfort station supervisor bed and set up.
[2019-05-28 23:18] LABS: ALANINE AMINOTRANSFERASE 15 U/L (12-78); ALBUMIN 3.4 g/dL (3.4-5.0); ANION GAP 6 mmol/L (5-15); CALCIUM 9.2 mg/dL (8.5-10.1); CHLORIDE 113 mmol/L (98-107)
[2019-05-28 23:21] LABS: ALKALINE PHOSPHATASE 61 U/L (45-117); BILIRUBIN,TOTAL 0.2 mg/dL (0.2-1.0); TOTAL PROTEIN 6.4 g/dL (6.4-8.2)
[2019-05-28] MEDS ORDERED: HYDROmorphone 2 MG/ML, 1ML ONE (23:51)
[2019-05-29 00:08] LABS: CLUE CELLS NONE SEEN (NONE SEEN); WET PREP WBCS FEW (FEW)
[2019-05-29] MEDS ORDERED: DOXYCYCLINE 100MG TABLET ONE (00:51)
[2019-05-29] MEDS ORDERED: CEFTRIAXONE 250 MG ONE (00:51)
[2019-05-29] MEDS ORDERED: DICYCLOMINE 10 MG CAPSULE ONE (00:57)
[2019-05-29] MEDS ORDERED: DOXYCYCLINE 100MG TABLET PO ONE ×2 (01:00)
[2019-05-29] MEDS ORDERED: CEFTRIAXONE 250 MG IM ONE ×2 (01:00)
[2019-05-29] MEDS ORDERED: DICYCLOMINE 10 MG/ML, 2ML IM ONE (01:00)
--- NOTE | 2019-05-29 01:07 | NUR ---
PT UP TO BR IN NAD REPORT TO ANNE POOLE
[2019-05-29] MEDS ORDERED: HYDROmorphone 2 MG/ML, 1ML IM ONE (01:30)
== END 2019-05-29 01:48 | disposition home or self-care (01) ==
LOC: ED 22:30
DX: N72 Inflammatory disease of cervix uteri (principal); R31.9 Hematuria, unspecified; R10.2 Pelvic and perineal pain; F17.210 Nicotine dependence, cigarettes, uncomplicated; G89.29 Other chronic pain; Z90.49 Acquired absence of other specified parts of digestive tract
CPT/HCPCS: 36415; 80053; 81001; 81025; 85025; 87210; 87491; 87591; 87808; 96372; 99283; J0696; J1170

== ENCOUNTER 2019-06-05 11:51 | Emergency (ER) | payer MEDICAID ==
[~2019-06-05] VITALS: Ht 162.6 cm; Wt 99.0 kg
[2019-06-05 12:00] VITALS: BP 107/74
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
== END 2019-06-05 13:28 | disposition home or self-care (01) ==
LOC: ED 13:18
DX: M65.4 Radial styloid tenosynovitis [de Quervain] (principal); M77.9 Enthesopathy, unspecified; G89.29 Other chronic pain; M79.7 Fibromyalgia; F17.200 Nicotine dependence, unspecified, uncomplicated; Z88.1 Allergy status to other antibiotic agents; Z88.5 Allergy status to narcotic agent; Z88.8 Allergy status to other drugs, medicaments and biological substances
CPT/HCPCS: 29260; 99283

== ENCOUNTER 2019-06-20 00:24 | Emergency (ER) | payer MEDICAID ==
[~2019-06-20] VITALS: Ht 162.6 cm; Wt 97.8 kg
[2019-06-20 03:13] VITALS: BP 135/78
== END 2019-06-20 03:14 ==
LOC: ED 00:43
DX: G89.29 Other chronic pain (principal); R10.9 Unspecified abdominal pain; M54.2 Cervicalgia; F41.1 Generalized anxiety disorder; G43.909 Migraine, unspecified, not intractable, without status migrainosus; J45.909 Unspecified asthma, uncomplicated; F43.10 Post-traumatic stress disorder, unspecified
CPT/HCPCS: 36415; 80053; 81001; 81025; 83690; 85025; 87086; 99283

== ENCOUNTER 2019-07-09 18:12 | Emergency (ER) | payer MEDICAID ==
[~2019-07-09] VITALS: Ht 162.6 cm; Wt 99.7 kg
[2019-07-09 19:05] VITALS: BP 116/76
== END 2019-07-09 20:32 | disposition home or self-care (01) ==
LOC: ED 20:26
DX: K04.7 Periapical abscess without sinus (principal); K11.21 Acute sialoadenitis; J45.909 Unspecified asthma, uncomplicated
CPT/HCPCS: 36415; 80048; 82040; 84443; 85025; 99283

== ENCOUNTER 2019-09-19 20:07 | Emergency (ER) | payer MEDICAID ==
[~2019-09-19] VITALS: Ht 162.6 cm; Wt 98.8 kg
[~2019-09-19 20:07] MED LIST changes: -IBUP-1484; +IBUP-1902
[2019-09-19 20:10] VITALS: BP 99/55
--- NOTE | 2019-09-19 21:51 | NUR ---
AMBULATORY TO RME 05 W/ LIMPING GAIT
== END 2019-09-19 22:38 | disposition left against medical advice (07) ==
LOC: ED 22:32
DX: M79.671 Pain in right foot (principal); G89.29 Other chronic pain; J45.909 Unspecified asthma, uncomplicated; F32.9 Major depressive disorder, single episode, unspecified; F41.1 Generalized anxiety disorder; F43.10 Post-traumatic stress disorder, unspecified; Z90.49 Acquired absence of other specified parts of digestive tract; Z90.89 Acquired absence of other organs
CPT/HCPCS: 99283

== ENCOUNTER 2019-10-26 19:32 | Emergency (ER) | payer OTHER, MEDICAID ==
[~2019-10-26] VITALS: Ht 162.6 cm; Wt 99.4 kg
[2019-10-26 19:36] VITALS: BP 130/78
--- NOTE | 2019-10-26 20:00 | NUR ---
POC 99
== END 2019-10-26 20:50 | disposition home or self-care (01) ==
LOC: ED 20:14
DX: B35.3 Tinea pedis (principal); G89.29 Other chronic pain; J45.909 Unspecified asthma, uncomplicated; F17.200 Nicotine dependence, unspecified, uncomplicated; F41.1 Generalized anxiety disorder; Z90.89 Acquired absence of other organs; Z90.49 Acquired absence of other specified parts of digestive tract
CPT/HCPCS: 82962; 99283

== ENCOUNTER 2019-12-05 16:28 | Emergency (ER) | payer MEDICAID, OTHER ==
[~2019-12-05] VITALS: Ht 162.6 cm; Wt 96.2 kg
[2019-12-05 17:02] LABS: BASOPHILS # (AUTO) 0.04 x10^3/uL (0-0.1); BASOPHILS % (AUTO) 1 % (0-1); EOSINOPHILS # (AUTO) 0.01 x10^3/uL (0-0.4); EOSINOPHILS % (AUTO) 0 % (1-7); LYMPHOCYTES % (AUTO) 28 % (22-44); MD NO; MEAN CORPUSCULAR HGB CONC 33.3 g/dL (32.4-35.8); MEAN CORPUSCULAR VOLUME 90.3 fL (80-100); MEAN PLATELET VOLUME 8.2 fL (7.4-10.4); MONOCYTES # (AUTO) 0.36 x10^3/uL (0.2-0.8); MONOCYTES % (AUTO) 4 % (2-9); NEUTROPHILS # (AUTO) 5.98 x10^3/uL (1.8-6.8); NEUTROPHILS % (AUTO) 67 % (42-75); PLATELET COUNT 274 x10^3/uL (130-400); RED BLOOD COUNT 4.67 x10^6/uL (3.82-5.3); RED CELL DISTRIBUTION WIDTH 13.5 % (9.6-15.2)
[2019-12-05 17:13] LABS: ALANINE AMINOTRANSFERASE 20 U/L (12-78); ANION GAP 6 mmol/L (5-15); CALCIUM 9.4 mg/dL (8.5-10.1); CHLORIDE 111 mmol/L (98-107); CREATININE 0.75 mg/dL (0.55-1.02)
[2019-12-05 17:15] LABS: ALKALINE PHOSPHATASE 59 U/L (45-117); BILIRUBIN,TOTAL 0.5 mg/dL (0.2-1.0); TOTAL PROTEIN 7.8 g/dL (6.4-8.2)
--- NOTE | 2019-12-05 19:30 | NUR ---
PT AMBULATORY FROM LOBBY TO ROOM.
[2019-12-05] MEDS ORDERED: DIAZEPAM 5 MG TABLET PO ONE (20:30)
--- NOTE | 2019-12-05 20:36 | NUR ---
URINE COLLECTED/SENT TO LAB. PT UPDATED ON POC. PT REFUSING VALIUM AT THIS TIME. WARM BLANKET PROVIDED, CALL LIGHT WITHIN REACH. VS UPDATED IN COMPUTER.
[2019-12-05 20:51] LABS: CULTURE INDICATED? NO; MICROSCOPIC NOT IND
--- NOTE | 2019-12-05 21:00 | NUR ---
CALL TO LAB TO INQUIRE ON PROCESSING OF BETA HCG. PER STRATEGIC ADVISOR, BETA BEING PROCESSED NOW.
--- NOTE | 2019-12-05 21:45 | NUR ---
REPORT RECEIVED FROM ZULEMA CONTRERAS. ASSUMED CARE OF PT. AWAITING XRAY READ AT THIS TIME. WILL CONTINUE TO MONITOR.
--- NOTE | 2019-12-05 21:50 | NUR ---
REPORT TO ANNITA POOLE.
--- NOTE | 2019-12-05 22:15 | NUR ---
Patient/Caregiver given discharge instructions and they have confirmed that they understand the instructions. Patient ambulatory with steady gait.
[2019-12-05 22:16] VITALS: BP 107/58
== END 2019-12-05 22:17 | disposition home or self-care (01) ==
LOC: ED 19:36
DX: R10.11 Right upper quadrant pain (principal); R11.0 Nausea; F17.210 Nicotine dependence, cigarettes, uncomplicated; G43.909 Migraine, unspecified, not intractable, without status migrainosus; G89.29 Other chronic pain
CPT/HCPCS: 36415; 71046; 74021; 80053; 81003; 83690; 84703; 85025; 93005; 99284

== ENCOUNTER 2020-02-15 19:52 | Emergency (ER) | payer MEDICAID ==
[~2020-02-15] VITALS: Ht 162.6 cm; Wt 98.3 kg
--- NOTE | 2020-02-15 20:15 | NUR ---
pt resting on gurney, monitors applied, siderail sup x2, call light within reach. pa at bedside for eval
--- NOTE | 2020-02-15 20:22 | NUR ---
PA DISCUSSED ALLERGY TO MORPHINE WITH PT, PT STATED "IT'S NOT AM ALLERGY, I JUST HAD A REACTION TO IT BUT I'M FINE TO HAVE THE MORPHINE". PHARMACY NOTIFIED
[2020-02-15] MEDS ORDERED: ONDANSETRON 2MG/ML, 2ML IVPush ONE (20:30)
[2020-02-15] MEDS ORDERED: ONDANSETRON 2MG/ML, 2ML ONE (20:36)
[2020-02-15] MEDS ORDERED: MORPHINE SULFATE 4 MG/ML, 1ML ONE ×2 (20:36→21:30)
[2020-02-15] MEDS: MORPHINE SULFATE 4 MG/ML, 1ML IVPush PRN ×2 (20:44→21:32)
--- NOTE | 2020-02-15 20:44 | NUR ---
pt medicated per jan. awaiting xray and lab results
[2020-02-15 20:52] VITALS: BP 108/72
[2020-02-15 20:58] LABS: BASOPHILS # (AUTO) 0.02 x10^3/uL (0-0.1); BASOPHILS % (AUTO) 0 % (0-1); EOSINOPHILS # (AUTO) 0.08 x10^3/uL (0-0.4); EOSINOPHILS % (AUTO) 1 % (1-7); LYMPHOCYTES % (AUTO) 49 % (22-44); MD NO; MEAN CORPUSCULAR HEMOGLOBIN 30.4 pg (27.0-34.8); MEAN CORPUSCULAR HGB CONC 33.8 g/dL (32.4-35.8); MEAN CORPUSCULAR VOLUME 90.1 fL (80-100); MEAN PLATELET VOLUME 8.6 fL (7.4-10.4); MONOCYTES % (AUTO) 8 % (2-9); NEUTROPHILS # (AUTO) 2.71 x10^3/uL (1.8-6.8); NEUTROPHILS % (AUTO) 42 % (42-75); PLATELET COUNT 206 x10^3/uL (130-400); RED CELL DISTRIBUTION WIDTH 13.3 % (9.6-15.2)
--- NOTE | 2020-02-15 21:06 | NUR ---
PT UP TO RR WITH STANDBY ASSIST, STEADY GAIT NOTED
[2020-02-15 21:09] LABS: ALANINE AMINOTRANSFERASE 18 U/L (12-78); ALBUMIN 3.4 g/dL (3.4-5.0); ANION GAP 6 mmol/L (5-15); CALCIUM 8.5 mg/dL (8.5-10.1); CHLORIDE 113 mmol/L (98-107); CREATININE 0.72 mg/dL (0.55-1.02)
[2020-02-15 21:13] LABS: ALKALINE PHOSPHATASE 60 U/L (45-117); TOTAL PROTEIN 6.7 g/dL (6.4-8.2)
--- NOTE | 2020-02-15 21:27 | NUR ---
PT CERTIFIED MASSAGE THERAPIST LIGHT REQUESTING MEDICATION FOR RIGHT SIDED ABD PAIN, PT TO BE MEDICATED, SEE MAR
[2020-02-15 21:29] LABS: BILIRUBIN,TOTAL < 0.1 mg/dL (0.2-1.0)
[2020-02-15] MEDS ORDERED: MAALOX/HYOSCYAMINE/LIDOCAINE 45 ML BTL ONE (21:55)
[2020-02-15] MEDS ORDERED: MAALOX/HYOSCYAMINE/LIDOCAINE 45 ML BTL PO ONE (22:00)
== END 2020-02-15 22:39 | disposition home or self-care (01) ==
LOC: ED 21:12
DX: R10.11 Right upper quadrant pain (principal); R07.89 Other chest pain; G89.29 Other chronic pain; G43.909 Migraine, unspecified, not intractable, without status migrainosus; Z90.49 Acquired absence of other specified parts of digestive tract
CPT/HCPCS: 36415; 71045; 80053; 83690; 84703; 85025; 93005; 96374; 96375; 96376; 99285; J2270; J2405

== ENCOUNTER 2020-03-11 21:53 | Emergency (ER) | payer MEDICAID ==
[~2020-03-11] VITALS: Ht 162.6 cm; Wt 98.0 kg
--- NOTE | 2020-03-11 22:16 | NUR ---
Attempted to do ekg on pt. Pt refused. "i just dont think its necessary." Pt educated on policy and clinical need. Still refusing.
--- NOTE | 2020-03-11 22:18 | NUR ---
c/o sob x3 days, states inhalers are not helping. placed vital signs monitors, call light within reach.
[2020-03-11] MEDS ORDERED: HYDR-3240 PO (22:20)
[2020-03-11] MEDS ORDERED: ALBUTEROL/IPRATROPIUM 2.5MG/0.5MG, 3 ML NPPB ONE (22:30)
[2020-03-11] MEDS ORDERED: ALBUTEROL/IPRATROPIUM 2.5MG/0.5MG, 3 ML ONE (22:31)
[2020-03-11 22:49] VITALS: BP 103/49
--- NOTE | 2020-03-11 22:49 | NUR ---
Medicated per MAR. VSS.
== END 2020-03-11 23:07 | disposition home or self-care (01) ==
LOC: ED 22:26
DX: J45.31 Mild persistent asthma with (acute) exacerbation (principal); R06.00 Dyspnea, unspecified; G43.909 Migraine, unspecified, not intractable, without status migrainosus
CPT/HCPCS: 94640; 99283; J7512

== ENCOUNTER 2020-05-03 00:13 | Emergency (ER) | payer MEDICAID ==
[~2020-05-03] VITALS: Ht 162.6 cm; Wt 97.3 kg
[~2020-05-03 00:13] MED LIST changes: +HYDR-3240 PO
--- NOTE | 2020-05-03 00:27 | NUR ---
THIS IS A 29Y F THAT COMES IN FOR WORSENING GILES, PT HAD CRANIOTOMY 04/22 AND STILL HAS STACY IN PLACE, PT HAS TAKEN ALL HOME MEDS PRIOR TO ARRIVAL TO ER WITHOUT IMPROVMENT. PT CONNECTED TO ALL MONITORING VSS NADN, PT ABLE TO MOVE ALL EXTREMS AND IS NEURO INTACT. WILL CONTINUE TO MONITOR.
[2020-05-03] MEDS ORDERED: HYDROmorphone 1 MG/ML, 1ML INJ ONE (00:48)
--- NOTE | 2020-05-03 00:50 | NUR ---
PT MEDICATED PER MAR
[2020-05-03] MEDS ORDERED: HYDROmorphone 1 MG/ML, 1ML INJ IM ONE (01:00)
--- NOTE | 2020-05-03 01:05 | NUR ---
PT IN CT AT THIS TIME
--- NOTE | 2020-05-03 01:20 | NUR ---
PT BACK FROM CT, PER NUTRITION PARTNER A BUG WAS FOUND CRAWLING AROUND PT'S BED. HOUSEKEEPING ID BUG A TYPE OF LICE. PT REQ NEW GOWN, PROVIDED REQ. PT REPORTS SMALL IMPROVEMENT IN PAIN
--- NOTE | 2020-05-03 02:53 | NUR ---
PT RESTING ON GAVIN CAMEJO PT REPORTS SOME PAIN BUT THAT SHE IS FEELING BETTER THAN BEFORE
--- NOTE | 2020-05-03 03:32 | NUR ---
SPOKE WITH PT MOTHER ABOUT UPDATE AND POC AT REQ OF PT.
[2020-05-03 03:48] VITALS: BP 101/55
--- NOTE | 2020-05-03 03:48 | NUR ---
PT UP TO RESTROOM STEADY GAIT NO ASSIST AT THIS TIME, VSS, PT REQ MORE PAIN MD KENISHA UPDATED
--- NOTE | 2020-05-03 04:01 | NUR ---
PT TO BE DC PER NEURO, NO ADDITIONAL MEDS AT THIS TIME.
--- NOTE | 2020-05-03 04:11 | NUR ---
Patient/Caregiver given discharge instructions and they have confirmed that they understand the instructions. Patient ambulatory with steady gait.
== END 2020-05-03 04:15 | disposition home or self-care (01) ==
LOC: ED 00:40
DX: G43.909 Migraine, unspecified, not intractable, without status migrainosus (principal); M79.7 Fibromyalgia; Z87.891 Personal history of nicotine dependence
CPT/HCPCS: 70450; 96372; 99284; J1170

== ENCOUNTER 2020-06-18 18:16 | Emergency (ER) | payer MEDICAID ==
[~2020-06-18] VITALS: Ht 162.6 cm; Wt 101.4 kg
--- NOTE | 2020-06-18 18:44 | NUR ---
CLAM PICKER: PT AMBULATORY TO ROOM FROM LOBBY.
--- NOTE | 2020-06-18 19:04 | NUR ---
REPORT FROM MARYURI POOLE. PT RESTING WITH FAMILY AT BEDSIDE. WAITING FOR MD TO EVALUATE. CALL LIGHT IN REACH
[2020-06-18] MEDS ORDERED: HYDROmorphone 1 MG/ML, 1ML INJ ONE (19:42)
--- NOTE | 2020-06-18 19:49 | NUR ---
PT RECIEVED PAIN MEDICATION AFTER FAMILY CAME TO GET HER DAUGHTER. TECH WILL REMOVE SPLINT. PT HAS NO NEEDS AT THIS TIME. CALL LIGHT IN REACH
[2020-06-18] MEDS ORDERED: HYDROmorphone 1 MG/ML, 1ML INJ IM PRN (20:00)
--- NOTE | 2020-06-18 20:32 | NUR ---
Patient given discharge instructions and they have confirmed that they understand the instructions. Patient ambulatory with steady gait.
[2020-06-18 20:33] VITALS: BP 121/72
== END 2020-06-18 20:35 | disposition home or self-care (01) ==
LOC: ED 19:41
DX: O26.891 Other specified pregnancy related conditions, first trimester (principal); M25.532 Pain in left wrist; R20.2 Paresthesia of skin; Z3A.08 8 weeks gestation of pregnancy
CPT/HCPCS: 29125; 96372; 99283; J1170

== ENCOUNTER 2020-06-20 10:43 | Emergency (ER) | payer MEDICAID ==
[~2020-06-20] VITALS: Ht 162.6 cm; Wt 102.0 kg
[2020-06-20 12:25] VITALS: BP 108/54
--- NOTE | 2020-06-20 12:51 | NUR ---
QUALITY ASSURANCE ANALYST: PT TO ROOM FROM LOBBY
[2020-06-20] MEDS ORDERED: OXYcodone/APAP 5/325MG TABLET ONE (13:08)
--- NOTE | 2020-06-20 13:10 | NUR ---
DIRECTOR OF PHOTOGRAPHY PER MAR.
--- NOTE | 2020-06-20 13:18 | NUR ---
TECH AT BEDSIDE FOR SPLINT PLACEMENT
[2020-06-20] MEDS ORDERED: OXYcodone/APAP 5/325MG TABLET PO ONE (13:30)
== END 2020-06-20 14:52 | disposition home or self-care (01) ==
LOC: ED 14:20
DX: G89.11 Acute pain due to trauma (principal); M25.532 Pain in left wrist; J45.909 Unspecified asthma, uncomplicated
CPT/HCPCS: 29125; 99283

== ENCOUNTER 2020-07-18 19:15 | Emergency (ER) | payer MEDICAID ==
[~2020-07-18] VITALS: Ht 162.6 cm; Wt 101.9 kg
[2020-07-18 19:18] VITALS: BP 148/90
--- NOTE | 2020-07-18 20:37 | NUR ---
PT TO CT AT THIS TIME
--- NOTE | 2020-07-18 22:23 | NUR ---
Jeanie given discharge instructions and they have confirmed that they understand the instructions. Patient ambulatory with steady gait. pt appears to be frustrated with diagnosis that she is being discharged with her current diagnosis. pt nad. no belongings left in room after dc. denies additional questions or needs at this time.
== END 2020-07-18 22:24 | disposition home or self-care (01) ==
LOC: ED 20:18
DX: G44.219 Episodic tension-type headache, not intractable (principal); R11.2 Nausea with vomiting, unspecified; R53.1 Weakness; J45.909 Unspecified asthma, uncomplicated
CPT/HCPCS: 70450; 99284

== ENCOUNTER 2020-08-18 18:32 | Emergency (ER) | payer MEDICAID ==
[~2020-08-18] VITALS: Ht 162.6 cm; Wt 100.8 kg
--- NOTE | 2020-08-18 18:59 | NUR ---
PT STATES SHE HAS ELEVATED LIVER ENZYMES AND CHRONIC PAIN FROM THAT, UNABLE TO FILL HER OXYCODONE TODAY BECAUSE PHARMACY RAN OUT OF THIS MED. PT STATES GENERALIZED ABD PAIN WITH LOOSE STOOL 10/10 NO VOMITING. VSS, RR EQUAL AND UNLABORED. REQUESTED URINE, LAB DRAWING BLOOD.
[2020-08-18 19:10] LABS: BASOPHILS # (AUTO) 0.03 x10^3/uL (0-0.1); BASOPHILS % (AUTO) 0 % (0-1); EOSINOPHILS # (AUTO) 0.07 x10^3/uL (0-0.4); EOSINOPHILS % (AUTO) 1 % (1-7); LYMPHOCYTES # (AUTO) 3.07 x10^3/uL (1-3.4); LYMPHOCYTES % (AUTO) 36 % (22-44); MD NO; MEAN CORPUSCULAR HEMOGLOBIN 30.6 pg (27.0-34.8); MEAN CORPUSCULAR HGB CONC 33.6 g/dL (32.4-35.8); MEAN CORPUSCULAR VOLUME 91.1 fL (80-100); MEAN PLATELET VOLUME 8.1 fL (7.4-10.4); MONOCYTES # (AUTO) 0.56 x10^3/uL (0.2-0.8); MONOCYTES % (AUTO) 7 % (2-9); NEUTROPHILS # (AUTO) 4.88 x10^3/uL (1.8-6.8); NEUTROPHILS % (AUTO) 57 % (42-75); PLATELET COUNT 331 x10^3/uL (130-400); RED BLOOD COUNT 4.54 x10^6/uL (3.82-5.3); RED CELL DISTRIBUTION WIDTH 13.2 % (9.6-15.2)
--- NOTE | 2020-08-18 19:14 | NUR ---
URINE SENT TO LAB.
[2020-08-18 19:17] LABS: ALANINE AMINOTRANSFERASE 22 U/L (12-78); ALBUMIN 3.9 g/dL (3.4-5.0); ANION GAP 9 mmol/L (5-15); CALCIUM 9.4 mg/dL (8.5-10.1); CHLORIDE 113 mmol/L (98-107); CREATININE 0.81 mg/dL (0.55-1.02)
[2020-08-18 19:20] LABS: ALKALINE PHOSPHATASE 65 U/L (45-117); BILIRUBIN,TOTAL 0.2 mg/dL (0.2-1.0)
[2020-08-18] MEDS ORDERED: ONDANSETRON ODT 4 MG ONE (19:26)
[2020-08-18] MEDS ORDERED: OXYcodone/APAP 7.5/325MG TABLET ONE (19:26)
[2020-08-18] MEDS ORDERED: OXYcodone/APAP 7.5/325MG TABLET PO ONE (19:30)
[2020-08-18] MEDS ORDERED: ONDANSETRON ODT 4 MG PO ONE (19:30)
[2020-08-18 20:24] LABS: MICROSCOPIC NOT IND
[2020-08-18 20:56] VITALS: BP 133/68
== END 2020-08-18 21:02 | disposition home or self-care (01) ==
LOC: ED 19:34
DX: R10.11 Right upper quadrant pain (principal); R11.0 Nausea; R19.7 Diarrhea, unspecified; G89.29 Other chronic pain; G43.909 Migraine, unspecified, not intractable, without status migrainosus
CPT/HCPCS: 36415; 80053; 81003; 83690; 84703; 85025; 99283; Q0162

== ENCOUNTER 2021-02-27 19:30 | Emergency (ER) | payer MEDICAID ==
[~2021-02-27] VITALS: Ht 162.6 cm; Wt 95.4 kg
[~2021-02-27 19:30] MED LIST changes: -CIPR500T3 PO; +CIPR500T4 PO; +HYDR-1067 PO; -HYDR-3240 PO; -OXYC-302; -OXYC-302 PO; -OXYC-307 PO; +OXYC-380 PO; +OXYC1TAB14; +OXYC1TAB14 PO
--- NOTE | 2021-02-27 20:47 | NUR ---
PT STATES SHE IS NOT ALLERGIC TO MORPHINE. HAS RECEIVED MORPHINE SINCE THE ONE TIME REACTION.
[2021-02-27] MEDS ORDERED: IBUPROFEN 600 MG TABLET ONE (21:24)
[2021-02-27] MEDS ORDERED: LIDODERM 5% PATCH TD ONE ×2 (21:24→21:30)
--- NOTE | 2021-02-27 21:26 | NUR ---
PT REFUSED MEDS. NOTIFIED. PT GOING TO US.
[2021-02-27] MEDS ORDERED: IBUPROFEN 200 MG TABLET PO ONE ×2 (21:30)
[2021-02-27 21:34] LABS: MICROSCOPIC INDICATED
--- NOTE | 2021-02-27 21:50 | NUR ---
PT BACK FROM US. LABS DRAWN BY [facility].
[2021-02-27 21:55] LABS: BASOPHILS % (AUTO) 0 % (0-1); EOSINOPHILS % (AUTO) 0 % (1-7); LYMPHOCYTES % (AUTO) 35 % (22-44); MEAN CORPUSCULAR HEMOGLOBIN 30.4 pg (27.0-34.8); MEAN PLATELET VOLUME 7.6 fL (7.4-10.4); MONOCYTES % (AUTO) 6 % (2-9); NEUTROPHILS % (AUTO) 58 % (42-75); PLATELET COUNT 264 x10^3/uL (130-400); RED CELL DISTRIBUTION WIDTH 13.2 % (9.6-15.2)
[2021-02-27 21:57] LABS: MD NO
[2021-02-27 22:06] LABS: ALANINE AMINOTRANSFERASE 15 U/L (12-78); ALBUMIN 3.7 g/dL (3.4-5.0); ANION GAP 6 mmol/L (5-15); CHLORIDE 117 mmol/L (98-107)
[2021-02-27 22:10] LABS: ALKALINE PHOSPHATASE 52 U/L (45-117); BILIRUBIN,TOTAL 0.2 mg/dL (0.2-1.0); CREATININE 0.67 mg/dL (0.55-1.02)
--- NOTE | 2021-02-27 22:12 | NUR ---
ALL RESULTS ARE BACK AT THIS TIME. CHART UP FOR RECHECK.
[2021-02-27 22:13] VITALS: BP 105/63
== END 2021-02-27 22:42 | disposition home or self-care (01) ==
LOC: ED 22:40
DX: S39.011A Strain of muscle, fascia and tendon of abdomen, initial encounter (principal); R10.11 Right upper quadrant pain; F17.210 Nicotine dependence, cigarettes, uncomplicated; R11.2 Nausea with vomiting, unspecified; J45.909 Unspecified asthma, uncomplicated; Z90.49 Acquired absence of other specified parts of digestive tract; X58.XXXA Exposure to other specified factors, initial encounter; Y93.89 Activity, other specified; Y92.89 Other specified places as the place of occurrence of the external cause; Y99.8 Other external cause status
CPT/HCPCS: 36415; 76770; 80053; 81001; 84703; 85025; 99406

== ENCOUNTER 2021-04-23 19:44 | Emergency (ER) | payer MEDICAID ==
[~2021-04-23] VITALS: Ht 162.6 cm; Wt 93.6 kg
[~2021-04-23 19:44] MED LIST changes: -HYDR-1067 PO; +HYDR-2214 PO
[2021-04-23 19:52] VITALS: BP 118/86
--- NOTE | 2021-04-23 19:58 | NUR ---
SENT BACK TO WAITING ROOM, AWARE OF PENDING ORDERS, GIVEN URINE CUP.
[2021-04-23 20:28] LABS: BASOPHILS % (AUTO) 0 % (0-1); EOSINOPHILS % (AUTO) 0 % (1-7); LYMPHOCYTES % (AUTO) 41 % (22-44); MEAN CORPUSCULAR HEMOGLOBIN 30.5 pg (27.0-34.8); MONOCYTES % (AUTO) 7 % (2-9); NEUTROPHILS % (AUTO) 51 % (42-75); PLATELET COUNT 267 x10^3/uL (130-400); RED BLOOD COUNT 4.67 x10^6/uL (3.82-5.3)
[2021-04-23 20:34] LABS: ALANINE AMINOTRANSFERASE 25 U/L (12-78); ANION GAP 8 mmol/L (5-15); CALCIUM 9.4 mg/dL (8.5-10.1); CHLORIDE 110 mmol/L (98-107); CREATININE 0.84 mg/dL (0.55-1.02)
[2021-04-23 20:35] LABS: MD NO
[2021-04-23 20:39] LABS: ALKALINE PHOSPHATASE 64 U/L (45-117); BILIRUBIN,TOTAL 0.4 mg/dL (0.2-1.0); TOTAL PROTEIN 7.9 g/dL (6.4-8.2)
--- NOTE | 2021-04-23 22:24 | NUR ---
PT PLACED IN STRETCHER AND UA SENT TO LAB. PT IN BED WITH SIDERAILS UP X2 AND CALL LIGHT WITHIN REACH.
[2021-04-23 22:30] LABS: MICROSCOPIC INDICATED
--- NOTE | 2021-04-23 22:47 | NUR ---
REPORT FROM KATHLEEN POOLE
--- NOTE | 2021-04-23 22:47 | NUR ---
PT TO CT
== END 2021-04-23 23:56 | disposition home or self-care (01) ==
LOC: ED 22:21
DX: R10.84 Generalized abdominal pain (principal); R11.2 Nausea with vomiting, unspecified; R00.0 Tachycardia, unspecified; G89.29 Other chronic pain; J45.909 Unspecified asthma, uncomplicated; Z90.89 Acquired absence of other organs; Z88.0 Allergy status to penicillin; Z88.6 Allergy status to analgesic agent; Z88.3 Allergy status to other anti-infective agents
CPT/HCPCS: 36415; 74176; 80053; 81001; 83690; 84703; 85025; 87086; 99284

== ENCOUNTER 2021-07-05 13:29 | Emergency (ER) | payer MEDICAID ==
[~2021-07-05] VITALS: Ht 162.6 cm; Wt 90.6 kg
[2021-07-05 15:07] VITALS: BP 115/73
--- NOTE | 2021-07-05 15:11 | NUR ---
PT WITH CHRONIC PAIN "STOMACH ISSUES" STATES SHE IS ALWAYS HAVING PAIN AND IS BEING SENT TO [place] TO FIGURE OUT THE CAUSE. HOWEVER THE PAIN HAS BEEN WORSE OVER THE LAST THREE DAYS. DENIES URINARY SYMPTOMS. ERMD IN TO [facility] PT. AWAITING ORDERS
[2021-07-05 15:21] LABS: BASOPHILS % (AUTO) 0 % (0-1); EOSINOPHILS % (AUTO) 1 % (1-7); LYMPHOCYTES % (AUTO) 39 % (22-44); MEAN CORPUSCULAR HEMOGLOBIN 31.3 pg (27.0-34.8); MEAN PLATELET VOLUME 8.2 fL (7.4-10.4); MONOCYTES % (AUTO) 7 % (2-9); NEUTROPHILS % (AUTO) 53 % (42-75); PLATELET COUNT 246 x10^3/uL (130-400); RED BLOOD COUNT 4.28 x10^6/uL (3.82-5.3); RED CELL DISTRIBUTION WIDTH 13.3 % (9.6-15.2)
[2021-07-05 15:29] LABS: ALANINE AMINOTRANSFERASE 15 U/L (12-78); ALBUMIN 3.7 g/dL (3.4-5.0); ANION GAP 5 mmol/L (5-15); CALCIUM 9.1 mg/dL (8.5-10.1); CHLORIDE 112 mmol/L (98-107); CREATININE 0.64 mg/dL (0.55-1.02)
[2021-07-05 15:33] LABS: ALKALINE PHOSPHATASE 54 U/L (45-117); BILIRUBIN,TOTAL 0.4 mg/dL (0.2-1.0); TOTAL PROTEIN 7.1 g/dL (6.4-8.2)
[2021-07-05 15:52] LABS: MICROSCOPIC INDICATED
== END 2021-07-05 17:24 | disposition home or self-care (01) ==
LOC: ED 16:51
DX: R10.11 Right upper quadrant pain (principal); R10.13 Epigastric pain; J45.909 Unspecified asthma, uncomplicated; F17.200 Nicotine dependence, unspecified, uncomplicated; Z90.49 Acquired absence of other specified parts of digestive tract
CPT/HCPCS: 36415; 74021; 80053; 81001; 83690; 84703; 85025; 87086; 99284

== ENCOUNTER 2021-07-10 19:53 | Emergency (ER) | payer MEDICAID ==
[~2021-07-10] VITALS: Ht 162.6 cm; Wt 94.2 kg
[2021-07-10 20:15] VITALS: BP 134/88
--- NOTE | 2021-07-10 21:14 | NUR ---
PT LEFT AMA AND SIGNED PAPERS. PT ADVISED TO STAY AND SEE MD. PT REFUSED
== END 2021-07-10 21:17 | disposition left against medical advice (07) ==
LOC: ED 21:00
DX: R07.89 Other chest pain (principal); V49.9XXA Car occupant (driver) (passenger) injured in unspecified traffic accident, initial encounter; Y93.89 Activity, other specified; Y92.89 Other specified places as the place of occurrence of the external cause; Y99.8 Other external cause status
CPT/HCPCS: 71045; 99283

== ENCOUNTER 2021-07-11 16:01 | Emergency (ER) | payer MEDICAID ==
[~2021-07-11] VITALS: Ht 162.6 cm; Wt 93.4 kg
[2021-07-11 16:23] VITALS: BP 130/85
--- NOTE | 2021-07-11 21:31 | NUR ---
PT CALLED FOR ROM. NA X 1
--- NOTE | 2021-07-11 22:00 | NUR ---
NA X 2
--- NOTE | 2021-07-11 22:22 | NUR ---
NA X 3
== END 2021-07-11 22:23 | disposition left against medical advice (07) ==
LOC: ED 19:06
DX: R07.89 Other chest pain (principal)
CPT/HCPCS: 93005; 99283

== ENCOUNTER 2021-07-15 23:51 | Emergency (ER) | payer MEDICAID ==
[~2021-07-15] VITALS: Ht 162.6 cm; Wt 95.0 kg
--- NOTE | 2021-07-16 00:05 | NUR ---
PT BIB [facility] FOR RIGHT CHEST PAIN, PT STATES THAT IT HURTS TO LAY DOWN AND STAND UP AND NOTHING MAKES IT FEEL BETTER, PT STATES PAIN IS FROM RIGHT CHEST TO RIGHT UPPER QUAD ABD. PT STATES IT FEELS LIKE BRICKS ARE BEING STACKED ON HER CHEST. PT RESTING ON GURNEY AND PLACED ON CONTINUOUS MONITORING.
[2021-07-16] MEDS ORDERED: ONDANSETRON 2MG/ML, 2ML IVPush ONE (00:30)
[2021-07-16] MEDS ORDERED: ONDANSETRON 2MG/ML, 2ML ONE (00:52)
[2021-07-16] MEDS ORDERED: MORPHINE SULFATE 4 MG/ML, 1ML ONE ×2 (00:52→01:22)
[2021-07-16 00:55] LABS: BASOPHILS % (AUTO) 1 % (0-1); EOSINOPHILS % (AUTO) 2 % (1-7); LYMPHOCYTES % (AUTO) 39 % (22-44); MEAN CORPUSCULAR HEMOGLOBIN 30.7 pg (27.0-34.8); MEAN CORPUSCULAR HGB CONC 34.3 g/dL (32.4-35.8); MEAN PLATELET VOLUME 8.3 fL (7.4-10.4); MONOCYTES % (AUTO) 11 % (2-9); NEUTROPHILS % (AUTO) 48 % (42-75); PLATELET COUNT 162 x10^3/uL (130-400); RED BLOOD COUNT 4.28 x10^6/uL (3.82-5.3); RED CELL DISTRIBUTION WIDTH 13.5 % (9.6-15.2)
--- NOTE | 2021-07-16 00:57 | NUR ---
PT MEDICATED AND EKG BEING PERFORMED
[2021-07-16] MEDS: MORPHINE SULFATE 4 MG/ML, 1ML IVPush PRN ×2 (01:00→01:25)
[2021-07-16 01:07] LABS: ALANINE AMINOTRANSFERASE 84 U/L (12-78); ALBUMIN 3.2 g/dL (3.4-5.0); ANION GAP 6 mmol/L (5-15); CALCIUM 9.1 mg/dL (8.5-10.1); CHLORIDE 108 mmol/L (98-107); CREATININE 0.65 mg/dL (0.55-1.02)
[2021-07-16 01:12] LABS: ALKALINE PHOSPHATASE 93 U/L (45-117); BILIRUBIN,TOTAL 0.3 mg/dL (0.2-1.0); TOTAL PROTEIN 7.2 g/dL (6.4-8.2); TROPONIN I < 0.015 ng/mL (0.000-0.045)
--- NOTE | 2021-07-16 01:16 | NUR ---
REPORT RECIEVED FROM BOUBACAR POOLE
[2021-07-16 01:34] VITALS: BP 101/54
== END 2021-07-16 01:38 | disposition home or self-care (01) ==
LOC: ED 23:56
DX: R07.89 Other chest pain (principal); J45.909 Unspecified asthma, uncomplicated; F17.200 Nicotine dependence, unspecified, uncomplicated; Z90.49 Acquired absence of other specified parts of digestive tract
CPT/HCPCS: 36415; 71045; 80053; 84484; 84703; 85025; 93005; 96374; 96375; 99285; J2270; J2405

== ENCOUNTER 2021-07-20 12:42 | Emergency (ER) | payer MEDICAID ==
[~2021-07-20] VITALS: Ht 162.6 cm; Wt 92.5 kg
[2021-07-20 14:29] VITALS: BP 124/74
== END 2021-07-20 14:31 | disposition home or self-care (01) ==
LOC: ED 13:28
DX: Z90.49 Acquired absence of other specified parts of digestive tract (principal); Z88.0 Allergy status to penicillin
CPT/HCPCS: 99283; U0003; U0005